=== PATIENT | female | born 1985 | race Caucasian/White ===

== ENCOUNTER 2021-07-23 14:47 | Emergency (ER) | payer SELFPAY ==
[~2021-07-23] VITALS: Ht 165.1 cm; Wt 54.4 kg
--- NOTE | 2021-07-23 15:01 | NUR ---
BIBS FOR C/O RIGHT ARMPIT LUMP AND LEFT FACIAL SWELLING. DENIES PAIN. IN ROOM AIR AND DENIES SOB. RESPIRATION REGULAR AND UNLABORED. WILL CONTINUE TO MONITOR THE PATIENT.
[2021-07-23] MEDS ORDERED: AMOX-430 PO (17:38)
[2021-07-23 17:44] VITALS: BP 116/87
--- NOTE | 2021-07-23 17:44 | NUR ---
Patient discharged to home in stable condition. Written and verbal after care instructions given. Patient verbalizes understanding of instruction.
== END 2021-07-23 17:44 | disposition home or self-care (01) ==
LOC: ER 15:06
DX: R22.31 Localized swelling, mass and lump, right upper limb (principal); J32.0 Chronic maxillary sinusitis; F41.9 Anxiety disorder, unspecified; Z98.890 Other specified postprocedural states